=== PATIENT | male | born 1970 | race Caucasian/White ===

== ENCOUNTER 2020-03-20 14:36 | Emergency (ER) | payer SELFPAY ==
[2020-03-20 14:52] VITALS: BP 156/89; PULSE 82; RESP 15; TEMP 36.8; O2SAT 96
--- NOTE | 2020-03-20 16:09 | ED.GENADUL_ITS ---
Discharge Plan Disposition Patient Disposition: HOME Condition: Good Discharge Details Chief Complaint: Laceration Clinical Impression: Avulsion of soft tissue Primary Care Provider: Mikael Noel ED Provider: Dot Toure Home Meds and New Rx's Prescriptions: Continued ibuprofen 200 MG capsule 400 mg PO Q6H PRN Qty: 3 RF: 0 simvastatin 40 MG tablet 40 mg PO DAILY Qty: 1 RF: 0 Discharge Instructions Instructions: Laceration (ED), Skin Adhesive Care (ED) Additional Instructions: Keep wound clean, dry, covered. Tomorrow, you may wash with running water but please be gentle with the adhesive. Please try to keep the wound covered so that you do not pick at the adhesive. Please do not place any ointment over the adhesive as it may cause it to breakdown prematurely. You may use the splint provided to help protect the end of your finger and help with discomfort. Please monitor for signs of infection including redness, warmth, drainage, increased pain, fever/chills. If you develop these or other new/worsening symptoms please seek care urgently once again. Tetanus was updated today. You may use Tylenol and/or ibuprofen as needed for discomfort. Please follow-up with primary care next week for reevaluation. Referrals: Mikael Noel [Primary Care Provider] - Medical Decision Making Patient is a pleasant 49-year-old [id number] male presenting today with chief complaint of laceration to the left thumb. He reports a prior to arrival he was at work when he slipped with a utility knife slicing the radial side of his left thumb. Completely avulsed a piece of tissue including a section of the distal nail. Patient has a 1 cm x 8 mm avulsed area of tissue. Deep structures are intact. Patient does have active oozing from this area. Tetanus is not up- to-date. He denies other injury the time of the incident. Remaining exam of the thumb is unremarkable. He does have sensation is intact as well as capillary refill. Patient I discussed risks benefits as well as expected procedural steps of digital block followed by cleansing of the wound, further exploration and adhesive closure. He was understanding and wishes to proceed Please see procedure note. Patient tolerated this well. No foreign body or debris was noted. Will update patient's tetanus today. Plan to send home with a foam and metal splint that he can wear to help with discomfort is given strict return precautions. In particular, we discussed signs symptoms of infection. We did discuss wound care as well as adhesive care at length. All of his questions or concerns were addressed and he is in agreement this plan. He will f/u for wound evaluation with is PCP in one week. HPI General Mode of arrival: ambulatory . Date/Time Provider Initiated Documentation: 03/20/20 15:31 . Limitations to Documentation: no limitations . Information obtained by: patient and RN notes reviewed . History of Present Illness 49 year old M presents to the emergency department with the chief complaint of tissue avulsion left thumb, described as moderate, with intensity rated at 5. Quality is described as burning, and is localized to the left and upper extremity. Patient reports no radiation. Patient started experiencing this hour(s) (1) and it has been constant. No relieving factors improve symptom(s), Movement worsens symptoms . Patient notes no other symptoms.. Patient did receive the following treatments prior to arrival, none Related Data Home Medications Medication Instructions Recorded Confirmed ibuprofen 400 mg PO Q6H PRN #3 tab-cap 01/07/14 03/20/20 simvastatin 40 mg PO DAILY #1 tab-cap 01/07/14 03/20/20 Allergies Allergy/AdvReac Type Severity Reaction Status Date / Time No Known Allergies Allergy Unverified 01/07/14 10:48 General Stated Complaint: Laceration RANJIT: 4 Review of Systems Constitutional Constitutional: Reports as per HPI, Denies chills and Denies fever(s) Musculoskeletal Musculoskeletal: Reports as per HPI Integumentary/Breasts Skin/Breast: Reports as per HPI Neurologic Neurologic: Reports as per HPI, Denies sensory deficit and Denies paresthesias [facility] Social History Smoking/Tobacco Use Status: Current every day Alcohol Intake: current Alcohol Intake frequency: 3 or more drinks per day Alcohol type: beer Drug use: Never Do you feel safe at home: Yes Do you feel safe in your relationship?: Yes Exam Const General: cooperative, healthy appearing, comfortable, no acute distress and well developed Nutritional Appearance: average body habitus and well nourished Orientation: alert and awake Resp Effort & Inspection: normal respiratory effort, able to speak in complete sentences and no respiratory distress Cardio Rate: regular rate Rhythm: regular rhythm Skin Trauma: laceration (avulsion as drawn below, skin otherwise normal) Neuro General: patient alert and patient awake Cognition: normal cognition Speech: speech normal Gait: normal gait Sensory Exam: no sensory deficits noted Extrem Hand/finger images: 1. Area of avulsion along radial side left thumb. Digit otherwise normal. Good cap refill, sensation intact. Active bleeding noted. 1cm x 8mm area of avulsed tissue. No bone or deep structures visualized. No foreign body or debris. Full ROM. Psych Appearance: grossly normal and well kempt Mental Status: mental status grossly normal Speech and Movement: speech and movement normal Course Vital Signs Vital signs: Vital Signs Temperature 36.8 C 03/20/20 14:52 Pulse 82 03/20/20 14:52 Respiratory Rate 15 03/20/20 14:52 Blood Pressure 156/89 H 03/20/20 14:52 Pulse Oximetry 96 03/20/20 14:52 Temperature 36.8 C 03/20/20 14:52 Temperature Source Temporal Artery Scan 03/20/20 14:52 Pulse 82 03/20/20 14:52 Respiratory Rate 15 03/20/20 14:52 Respiratory Effort Non-Labored 03/20/20 14:54 Blood Pressure 156/89 H 03/20/20 14:52 Blood Pressure Position Supine 03/20/20 14:52 Pulse Oximetry 96 03/20/20 14:52 Oxygen Delivery Method Room Air 03/20/20 14:52 Oxygen Flow Rate 0 03/20/20 14:52 Pain Level 7 03/20/20 15:01 Procedures Laceration Laceration 1: Site: hand Side (If applicable): left Size (cm): 1 Description: other (Avulsed 1 cm x 8 mm oval area radial side left thumb) Depth: simple, single layer Local Anesthetic: Lidocaine 1% Amount of anesthesia used (mL): 5 (Digital block) Pre-repair: wound explored (Tourniquet used), irrigated extensively and deep structures intact Skin layer closed with: other (Adhesive)
== END 2020-03-20 16:30 | disposition home or self-care (01) ==
PROVIDERS: Emergency Provider Physician Assistant; PCP Family Medicine
DX: S61.112A Laceration without foreign body of left thumb with damage to nail, initial encounter (principal); W26.8XXA Contact with other sharp object(s), not elsewhere classified, initial encounter; Y99.0 Civilian activity done for income or pay
CPT/HCPCS: 12001

== ENCOUNTER 2020-10-19 18:12 | Outpatient (REF) | payer MEDICAID, SELFPAY ==
[2020-10-19 15:56] LABS: HCT 41.5 % (40.0-50.0); MCH 31.3 pg (27.0-33.0); MCHC 33.7 % (32.0-36.0); MCV 92.8 fL (80-95); MPV 11.9 fL (8.0-11.0); Platelet Count 177 10^3/uL (130-400); RBC 4.47 10^6/uL (4.36-5.78); RDW 12.6 % (11.8-14.1); RDW-SD 43.5 fL; WBC 8.09 10^3/uL (4.4-10.8)
[2020-10-19 16:10] LABS: ALT 39 U/L (16-63); AST 27 U/L (15-37); Alkaline Phosphatase 89 U/L (46-116); Anion Gap 9.2 mmol/L (3-11); BUN 13 mg/dL (7-18); Bilirubin, Total 0.3 mg/dL (0.2-1.0); CO2 25.8 mmol/L (21.0-32.0); CREATININE 0.98 mg/dL (0.70-1.30); Calcium 8.9 mg/dL (8.5-10.1); Calculated LDL 151 mg/dL (<100); Chloride 104 mmol/L (98-107); Cholesterol 238 mg/dL (<200); Glucose 108 mg/dL (74-106); HDL Cholesterol 41 mg/dL (40-60); Potassium 4.3 mmol/L (3.5-5.1); Sodium 139 mmol/L (136-145); Total Protein 7.1 g/dL (6.4-8.2); Triglyceride 233 mg/dL (<150)
[2020-10-19 16:34] LABS: Hemoglobin A1C 5.5 % (<5.7)
== END 2020-10-19 18:32 ==
LOC: NCHCN 18:12
PROVIDERS: PCP Family Medicine; Visit Provider Family Medicine
DX: R73.03 Prediabetes (principal); E78.5 Hyperlipidemia, unspecified; F10.10 Alcohol abuse, uncomplicated
CPT/HCPCS: 80053; 80061; 85027; 83036

== ENCOUNTER 2021-04-30 12:15 | Emergency (ER) | payer MEDICAID, SELFPAY ==
[2021-04-30 12:18] VITALS: BP 145/74; PULSE 67; RESP 17; TEMP 36.9; O2SAT 99
--- NOTE | 2021-04-30 12:22 | ED.GENADUL_ITS ---
Discharge Plan Disposition Patient Disposition: HOME Condition: Stable Discharge Details Clinical Impression: MCL sprain of right knee, Effusion of knee joint right Primary Care Provider: Mikael Noel ED Provider: Kandice Flowers Home Meds and New Rx's Prescriptions: No Action ibuprofen 200 MG capsule 400 mg PO Q6H PRN Qty: 3 RF: 0 simvastatin 40 MG tablet 40 mg PO DAILY Qty: 1 RF: 0 Discharge Instructions Instructions: Knee Sprain (ED) Additional Instructions: Wear brace as needed for comfort. Weightbearing as tolerated. Rest, ice, compression, elevation. It may still take a few weeks for it to start feeling better depending on the severity of the sprain. If it does not feel better in 3 weeks please call Orthopedics. Stand Alone Forms: Work Release Referrals: Francis Naqvi MD [ [facility]] - 2 weeks Mikael Noel [Primary Care Provider] - Discharge Data Discharge Date/Time-TO BE ENTERED AT DEPARTURE: 04/30/21 13:59 Medical Decision Making 50-year-old male presents to the ER right medial knee pain status post a twisting type injury x3 weeks ago. Patient reports that he has had continued pain and achiness worse at night, with weightbearing, and with walking up and down stairs. Associated with swelling. He did not initially fall to the ground. He denies previous surgeries to the knee. He has a past medical history of high cholesterol. He has been using a Coppertone [id number]-[id number] type compression bandage little to no relief. x-ray right knee ordered. I do suspect sprain. Possible MCL involvement. Patient was given a hinged knee brace prior to discharge, did not require any medications while here. Discussed follow-up with orthopedics and placed on the orthopedic clinic follow-up list, verbalized understanding. Encouraged rest ice compression elevation alternating ibuprofen and Tylenol. Patient discharged in hemodynamically stable condition. This text was generated using Tuteeation system, please disregard any oddities of phrase or misspellings. Imaging Data Radiologic Study: Imaging: X-Ray Radiologist's impression: Three-view x-ray right knee FINDINGS: There is no evidence of fracture but there is swelling anterior to the patella and there is also a joint effusion evident. Tibial plateau appears unremarkable. No joint space narrowing. No osseous lesions. IMPRESSION: No fractures evident although there does appear to be a joint effusion which probably signifies internal derangement. There is also prepatellar swelling evident. No patellar fracture evident. HPI General Mode of arrival: ambulatory . Date/Time Provider Initiated Documentation: 04/30/21 12:16 . Limitations to Documentation: no limitations . Information obtained by: patient . HPI Narrative: 50-year-old male presents to the ER right medial knee pain status post a twisting type injury x3 weeks ago. Patient reports that he has had continued pain and achiness worse at night, with weightbearing, and with walking up and down stairs. Associated with swelling. He did not initially fall to the ground. He denies previous surgeries to the knee. He has a past medical history of high cholesterol. He has been using a Coppertone pdzr-[id number]-[id number] type compression bandage little to no relief. Related Data Home Medications Medication Instructions Recorded Confirmed ibuprofen 400 mg PO Q6H PRN #3 tab-cap 01/07/14 04/30/21 simvastatin 40 mg PO DAILY #1 tab-cap 01/07/14 04/30/21 Allergies Allergy/AdvReac Type Severity Reaction Status Date / Time No Known Allergies Allergy Unverified 01/07/14 10:48 General Stated Complaint: Orthopedic RANJIT: 4 Review of Systems All systems reviewed & are unremarkable except as noted in HPI and below ENT Ears, Nose, Mouth, and Throat: Denies neck pain Musculoskeletal Musculoskeletal: Reports as per HPI, Reports abnormal gait (Limping), Denies back pain, Denies deformity, Reports arthralgias, Reports joint swelling (Mild), Denies limited range of motion, Denies loss of height, Denies neck pain and Denies numbness Neurologic Neurologic: Reports abnormal gait (Limping) and Denies numbness [facility] Social History Smoking/Tobacco Use Status: Current every day Smoking risk assessment performed?: Yes Alcohol Intake: current Alcohol Intake frequency: 3 or more drinks per day Alcohol type: beer Drug use: Never Do you feel safe at home: Yes Do you feel safe in your relationship?: Yes Exam Narrative Exam Narrative: Constitutional: Alert and oriented x3. Appears stated age. Normal body habitus. Head: Normocephalic, no trauma. Eyes: Pupils PERRLA, Red reflex noted, EOM's intact. Eyelids symmetrical without lesions, discharge, or swelling. Chest: RRR, Normal S1, S2, distal pulses intact. Resp: Lungs clear to auscultation bilaterally, no wheezes, rales, or rhonchi. Musculoskeletal: Walks with a limp, negative anterior posterior drawer test, does have some medial joint tenderness with palpation, no obvious deformity mild swelling generalized noted. Negative Lawrence's test, 5/5 strength to all four extremities. Skin: No suspicious rashes or lesions. Capillary refill less than 2 sec. Neurologic: Cranial nerves II-XII intact. Alert and oriented x 3. DTR's intact. Hematologic/Lymphatic: No ecchymosis, no lymphadenopathy. Course Vital Signs Vital signs: Vital Signs Temperature 36.9 C 04/30/21 12:18 Pulse 67 04/30/21 12:18 Respiratory Rate 17 04/30/21 12:18 Blood Pressure 145/74 H 04/30/21 12:18 Pulse Oximetry 99 04/30/21 12:18 Temperature 36.9 C 04/30/21 12:18 Temperature Source Temporal Artery Scan 04/30/21 12:18 Pulse 67 04/30/21 12:18 Respiratory Rate 17 04/30/21 12:18 Blood Pressure 145/74 H 04/30/21 12:18 Blood Pressure Position Sitting 04/30/21 12:18 Pulse Oximetry 99 04/30/21 12:18 Oxygen Delivery Method Room Air 04/30/21 12:18 Oxygen Flow Rate 0 04/30/21 12:18 Pain Level 3 04/30/21 12:18
--- NOTE | 2021-04-30 13:16 | DI.RAD_ITS ---
Exam(s) XR KNEE RT 3V AP,LAT,DAYLIN EXAM: XR KNEE RT 3V AP,LAT,DAYLIN CLINICAL HISTORY: Right knee pain/swelling x 3 weeks. TECHNIQUE: 2D digital imaging was performed. COMPARISON: No exams were available for comparison FINDINGS: There is no evidence of fracture but there is swelling anterior to the patella and there is also a shayy int effusion evident. Tibial plateau appears unremarkable. No joint space narrowing. No osseous lesions. IMPRESSION: No fractures evident although there does appear to be a joint effusion which probably signifies inter nal derangement. There is also prepatellar swelling evident. No patellar fracture evident. DATA REPOSITORY: RADIATION DOSE DELIVERED:
[2021-04-30 13:59] VITALS: BP 145/74; PULSE 67; RESP 17; TEMP 36.9; O2SAT 99
== END 2021-04-30 13:59 | disposition home or self-care (01) ==
PROVIDERS: Emergency Provider Registered Nurse Emergency; PCP Family Medicine
DX: S83.411A Sprain of medial collateral ligament of right knee, initial encounter (principal); M25.461 Effusion, right knee; X50.1XXA Overexertion from prolonged static or awkward postures, initial encounter
CPT/HCPCS: 29505; 73562; 99283

== ENCOUNTER 2021-06-08 04:00 | Outpatient (CLI) | payer MEDICAID, SELFPAY ==
--- NOTE | 2021-06-08 08:45 | DI.MRI_ITS ---
Exam(s) MR LOWER JOINT RT WO EXAM: MR LOWER JOINT RT WO CLINICAL HISTORY: PAIN, INTERNAL DERANGEMENT RT KNEE, MCL SPRAIN, M23.91, S83.411A. TECHNIQUE: Multiplanar multisequence MRI was performed. COMPARISON: CR XR KNEE RT 3V AP,LAT,DAYLIN from 04/30/2021 FINDINGS: BONES: There is no fracture or contusion pattern. JOINTS: Small defect apex patellar cartilage. A moderate-sized joint effusion is present. TENDONS: Extensor mechanism: Unremarkable. Medial retinaculum: Unremarkable. Lateral retinaculum: Unremarkable. Popliteus: Unremarkable. MUSCLES: Unremarkable. MENISCI: The medial meniscus shows abnormal amorphous increased signal in the periphery of the body. There is a horizontally oriented tear in the posterior horn as well as a radially oriented tear in th e posterior horn. Anterior horn is unremarkable.. The lateral meniscus is unremarkable. SOFT TISSUES: Anterior edema. LIGAMENTS: Anterior Cruciate: Mild amount of fluid within 8 ACL fibers but no focal tear. Posterior Cruciate: Unremarkable. Medial Collateral:Edema around the medial collateral ligament with thickening at the femoral attachme nt, consistent with a sprain. No focal visible tear. Lateral Collateral ligament complex: Unremarkable. OTHER: IMPRESSION: Anterior cruciate ligament and medial collateral ligament sprains. Complex tear of the posterior horn and body of the medial meniscus with radial and horizontally orien bony components. Joint effusion. DATA REPOSITORY:
== END 2021-06-08 04:20 ==
PROVIDERS: PCP Family Medicine; Visit Provider Student in an Organized Health Care Education/Training Program
DX: M23.91 Unspecified internal derangement of right knee (principal); S83.411A Sprain of medial collateral ligament of right knee, initial encounter; S83.511A Sprain of anterior cruciate ligament of right knee, initial encounter; S83.231A Complex tear of medial meniscus, current injury, right knee, initial encounter; M25.461 Effusion, right knee; X58.XXXA Exposure to other specified factors, initial encounter
CPT/HCPCS: 73721

== ENCOUNTER 2021-08-06 03:19 | Outpatient (CLI) | payer MEDICAID, SELFPAY ==
[2021-08-06 10:29] LABS: Source Nasal/Nares
[2021-08-06 13:39] LABS: COVID-19 PCR Negative (Negative)
== END 2021-08-06 03:20 | disposition home or self-care (01) ==
LOC: LBO 03:19
PROVIDERS: PCP Family Medicine; Visit Provider Student in an Organized Health Care Education/Training Program
DX: Z20.822 Contact with and (suspected) exposure to COVID-19 (principal); Z01.818 Encounter for other preprocedural examination
CPT/HCPCS: 87635

== ENCOUNTER 2021-08-07 07:23 | Day surgery (SDC) | payer MEDICAID, SELFPAY ==
--- NOTE | 2021-08-07 06:46 | W.PM.DSUDISC ---
Discharge Plan Disposition Patient Disposition: HOME Condition: Stable Discharge Details Reason For Visit: right knee arthroscopy Attending Provider: Francis Naqvi Primary Care Provider: Mikael Noel Home Meds and New Rx's Prescriptions: New oxycodone 5 mg tablet 5 mg PO Q4H PRNQty: 8 RF: 0 Continued ibuprofen 200 MG capsule 400 mg PO Q6H PRN Qty: 3 RF: 0 simvastatin 40 MG tablet 40 mg PO DAILY Qty: 1 RF: 0 Discharge Instructions Stand Alone Forms: Driss Knee Arthroscopy Referrals: Francis Naqvi MD [ [facility] STAFF PHYSICIAN] - Equipment/Supplies: Partial Weight Bearing Crutches Activity:: Activity as Tolerated Remove Dressings/Wound Care:: 72 hours Shower/Bathe:: 72 hours Diet:: As Tolerated Discharge Orders Discharge Orders: Discharge Order (Routine); Ordered 08/07/21 Ordered By: Nasreen Flores DS: Diagnosis Discharge Diagnosis (1) Complex tear of medial meniscus of right knee: Status: Acute (2) Internal derangement of right knee: Status: Acute
[2021-08-07 07:35] VITALS: BP 159/85; PULSE 91; RESP 18; TEMP 36.9; O2SAT 99
[2021-08-07] MEDS: Lactated Ringers 1,000 ML 80 ML IV (07:54)
[2021-08-07] MEDS: Acetaminophen 325 MG TAB 650 MG PO (07:57)
[2021-08-07 08:22] VITALS: BMI 31.3
--- NOTE | 2021-08-07 08:22 | W.ANESPRE ---
General Info Date of Service Date Performed: 08/07/21 Height: 5 ft 10 in Weight: 99.1 kg Body Mass Index (BMI): 31.3 Surgical Procedure: Operation Date: 08/07/21 09:40 Proposed Procedures Side Surgeon p KNEE ARTHROSCOPY WITH PARTIAL MEDIAL MENISECTOMY Francis Naqvi MD Meds Allergies and Home Medications Allergies Allergy/AdvReac Type Severity Reaction Status Date / Time No Known Allergies Allergy Unverified 08/07/21 07:43 Home Medication Medication Instructions Recorded ibuprofen 400 mg PO Q6H PRN #3 tab-cap 01/07/14 simvastatin 40 mg PO DAILY #1 tab-cap 01/07/14 Current Visit Medications: Current Medications Generic Name Dose Route Start Last Admin Trade Name Freq PRN Reason Stop Dose Admin Acetaminophen 650 mg 08/07/21 06:44 08/07/21 07:57 Acetaminophen 325 Mg Tab PO 650 mg Q4H PRN PRN Administration Ringer's Solution 1,000 mls @ 80 mls/hr 08/07/21 06:00 08/07/21 07:54 IV 09/05/21 23:59 80 mls/hr INFUSION GABE Administration Cefazolin Sodium 2,000 mg/ 100 mls @ 200 mls/hr 08/07/21 06:00 Sodium Chloride IVPB 08/07/21 16:00 PREOP GABE Ondansetron HCl 4 mg/ Sodium 52 mls @ 200 mls/hr 08/07/21 06:44 Chloride IVPB Q6H PRN PRN IV Miscellaneous Supplies 1 each 08/07/21 06:00 Iv Access IV 09/05/21 23:59 DIRECTED GABE Oxycodone HCl 5 mg 08/07/21 06:44 Oxycodone 5 Mg Tab PO Q3H PRN PRN Pain Sodium Chloride 0 ml 08/07/21 06:00 Normal Saline Flush 10 Ml Syr IV 09/05/21 23:59 PRN PRN Sodium Chloride 0 ml 08/07/21 06:00 Normal Saline 10 Ml Vial IJ 09/05/21 23:59 DIRECTED PRN Sterile Water 0 ml 08/07/21 06:00 Water,Injection,Sterile 10 Ml Vial IJ 09/05/21 23:59 DIRECTED PRN PFSH Active Problems Active Problems: Problem Status Onset Code MCL sprain of right knee S83.411A Effusion of knee joint right M25.461 Internal derangement of right knee M23.91 Complex tear of medial meniscus of right knee S83.231A Medical History Medical History HLD (hyperlipidemia) Tobacco Smoking/Tobacco Use Status: Current every day Tobacco Type: cigarettes Smoking cigarettes per day: 30 Alcohol Alcohol Intake: current Alcohol intake frequency: 3 or more drinks per day Alcohol type: beer Substance Use Substance use: Never Substance use type: does not use Vital Signs and Lab Results Vital Signs Most Recent Vital Signs in EMR: Most Recent Vital Signs Temp Pulse Resp BP Pulse Ox 36.9 C 91 H 18 159/85 H 99 08/07/21 07:35 08/07/21 07:35 08/07/21 07:35 08/07/21 07:35 08/07/21 07:35 Lab Results Blood Type / Crossmatch: No Data to Display Complete Blood Count: No Data to Display Complete Metabolic Panel: No Data to Display Liver Function Panel: No Data to Display Coagulation Panel: No Data to Display Cardiac Panel: No Data to Display Arterial Blood Gas: No Data to Display Venous Blood Gas: No Data to Display Pancreas Panel: No Data to Display Thyroid Panel: No Data to Display Infectious Disease: Coronavirus (COVID-19)(PCR) Negative (Negative) 08/06/21 09:15 08/06/21 Coronavirus 2019 Source Nasal/Nares 08/06/21 09:15 08/06/21 Blood Cultures: No Data to Display Toxicology Panel: No Data to Display Anesthesia Assessment and Plan Anesthesia History Personal History: No History of General Anesthesia Family History: No Family History of Anesthesia Complications Exercise Tolerance Exercise Tolerance: Metabolic Equivalents>4 Pertinent Negatives Pertinent Negatives: No Symptoms of GERD, No Major Cardiovascular Symptoms or Complaints and No Major Pulmonary Symptoms or Complaints Cardiac & Pulmonary Exam Cardiac Exam: Normal S1/S2 Heart Sounds Pulmonary Exam: Clear Bilateral Breath Sounds Implantable Cardiac Device Does patient have a Pacemaker or an ICD?: No Airway Exam Known Difficult Airway: No Mallampati Class: 2 Mouth Opening: Normal (> 3cm) Thyromental Distance: Greater than 3 cm Neck Range of Motion: Full ROM Neck Circumference: Normal Teeth Condition: Edentulous ASA Classification ASA Score: ASA 2 Emergency Case?: No NPO Status NPO Status: NPO Clears >2 hours, Solids >8 hours Anesthesia Plan Resuscitation Status: Full Code Anesthesia Technique: General Anesthesia Airway Planned: LMA Monitors Used: Standard Monitors
--- NOTE | 2021-08-07 09:55 | HPE_ITS ---
Date of service: 08/07/21 Time of Service: 09:55 Assessment and Plan Assessment and plan (1) Complex tear of medial meniscus of right knee: Status: Acute Assessment and plan: Farhad is a51yo male with a right medial meniscus tear. He has failed nonoperative treatments and desires to proceed with a right knee arthrotscopic partial medial menisectomy. I discussed the surgery with him in detail. I reviewed the risks of the procedure to include bleeding, infection, pain, stiffness, recurrence/retear, worsening arthritis, blood clot. Despite these risks, he agrees to proceed. Qualifiers: Tear current or old: current Encounter type: subsequent encounter Qual ified Code(s): S83.231D - Complex tear of medial meniscus, current injury, right knee, subsequent encounter History of Present Illness History of Present Illness Chief Complaint: Right Knee Medial Meniscus Tear Narrative: Farhad is a 51yo who has been ahving continued pain about his right knee. He has mechanical symptoms and an MRI with a medial meniscus tear. He is here to proceed with knee arthroscopy and partial medial menisecotmy. No new trauma. Pain is medial. Pain is worsened with twisting and bending, especially stepping down. Review of Systems All systems reviewed & are unremarkable except as noted in HPI and below PFSH Medical History HLD (hyperlipidemia) Social History Smoking/Tobacco Use Status: Current every day Tobacco Type: cigarettes Smoking risk assessment performed?: Yes Alcohol Intake: current Alcohol Intake frequency: 3 or more drinks per day Alcohol type: beer Drug use: Never Substance use type: does not use Do you feel safe at home: Yes Do you feel safe in your relationship?: Yes Meds Allergies and Home Medications Allergies Allergy/AdvReac Type Severity Reaction Status Date / Time No Known Allergies Allergy Unverified 08/07/21 07:43 Home Medications Medication Instructions Recorded Confirmed Type ibuprofen 400 mg PO Q6H PRN #3 tab-cap 01/07/14 08/06/21 History simvastatin 40 mg PO DAILY #1 tab-cap 01/07/14 08/07/21 History Exam Resp Auscultation: clear to auscultation bilaterally Cardio Rate: regular rate Rhythm: regular rhythm Results Last Vital Signs Temp 36.9 C 08/07/21 07:35 Pulse 91 H 08/07/21 07:35 Resp 18 08/07/21 07:35 BP 159/85 H 08/07/21 07:35 Pulse Ox 99 08/07/21 07:35
[2021-08-07] MEDS: ceFAZolin 2,000 MG in Normal Saline 100 ML 200 MG IVPB (10:03)
[2021-08-07] MEDS: Bupivacaine 0.5% Pres-Free 30 ML VIAL (10:47)
[2021-08-07 11:06] VITALS: BP 100/58; PULSE 72; RESP 28; TEMP 36.3; O2SAT 100
[2021-08-07 11:10] VITALS: BP 108/47; PULSE 73; RESP 33; TEMP 36.3; O2SAT 100
[2021-08-07 11:15] VITALS: BP 108/48; PULSE 79; RESP 27; TEMP 36.3; O2SAT 97
[2021-08-07 11:30] VITALS: BP 116/56; PULSE 73; RESP 19; TEMP 36.4; O2SAT 95
--- NOTE | 2021-08-07 12:05 | W.ANESPOSTOP ---
Postoperative Evaluation Date, Time and Location Date Performed: 08/07/21 Time Performed: 12:05 Patient Location: Day Surgery Unit Vital Signs Most Recent Imported Vital Signs: Most Recent Vital Signs Temp Pulse Resp BP Pulse Ox 36.4 C L 73 19 116/56 L 95 08/07/21 11:30 08/07/21 11:30 08/07/21 11:30 08/07/21 11:30 08/07/21 11:30 Pain Score Most Recent Pain Score: Most Recent Pain Score Pain Level 0 08/07/21 11:30 Assessment Mental Status: Awake (Alert & Oriented to Patient Baseline) Airway and Respiratory Function: Patent airway with normal (patient baseline) respiratory exam Cardiovascular Function: Hemodynamically Stable Hydration Status: Adequately Hydrated Nausea & Vomiting: No Nausea or Vomiting Pain: Pt. Denies Any Pain Peripheral Nerve Block: Patient did not receive a nerve block
[2021-08-07 12:12] VITALS: BP 120/67; PULSE 72; RESP 16; TEMP 36.5; O2SAT 99
--- NOTE | 2021-08-07 21:53 | ROE_ITS ---
Date of service: 08/07/21 Time of Service: 10:59 Operative Note Operative Note DATE OF PROCEDURE: 08/07/21 PRE-OP DIAGNOSIS: Right Knee Medial Meniscus Tear POST-OP DIAGNOSIS: same PROCEDURE: Right Knee Arthroscopic Partial Medial Menisectomy SURGEON: Francis Naqvi ANESTHESIA TYPE: General LMA/ETT Refer to Anesthesia Record ESTIMATED BLOOD LOSS: 0 PATHOLOGY: none sent COMPLICATIONS: None Patient was transported to: PACU Patient's condition: stable Indications: I have seen Farhad in clinic for symptoms of a meniscus tear. This was confirmed based on MRI and exam findings. Nonoperative measures were exhausted but disability and pain persisted. I discussed knee arthroscopy with meniscal intervention with the patient. I reviewed the risks of the procedure to include, but not limited to, bleeding, infection, pain, stiffness, damage to nerves or vessels, recurrence, blood clot. Despite these risks, the patient elected to proceed. Findings: A diagnostic arthroscopy was performed with the following findings: Suprapatellar Pouch: No significant inflammation, no loose bodies Medial Compartment: Complex medial meniscal tear with displaced fragments, intact meniscal root, mild chondromalacia, grade 1, over the femur, no loose bodies Notch: ACL and PCL were intact Lateral Compartment: No meniscal tear, intact meniscal root, no significant chondromalacia or signs of arthritis, no loose bodies Patellofemoral Compartment: No significant chondromalacia, no apparent patellar maltracking Procedure Description: Farhad was greeted in the preoperative holding area where the correct side was identified and marked. The consent was reviewed with the patient and signed. The history and physical was updated. All questions were answered. He was taken back to the operating room. The patient was placed into the supine position on the operating room table. All bony prominences were well padded. Prophylactic antibiotics in the form of cefazolin were administered. The right leg was then prepped with Chloraprep and draped in a standard fashion with stockinette and extremity drape. A timeout to confirm correct identity, side and site, procedure, allergies, anesthesia, and medical concerns was performed. The leg was placed into a pneumatic leg rees, [id number]. A standard lateral portal was made at the lateral border of the patella tendon in line with the inferior pole of the patella, soft spot. The skin and deep tissue was incised sharply and the blunt trochar was inserted atraumatically. A diagnostic arthroscopy was performed and the findings are listed above. The suprapatellar pouch had no significant inflammatory change. The patellofemoral articulation showed minimal chondromalacia as well as good tracking. The lateral gutter had no loose bodies and the medial gutter had no loose bodies but a large piece of the medial meniscus was seen within the medial gutter displaced from the posterior horn and body. The knee was brought into some valgus stress in extension to open the medial compartment. A medial portal was made, localized by a spinal needle. The portal was created with an #11 blade through skin and capsule under direct visualization avoiding any meniscal injury. A probe was then inserted into the medial compartment. The medial compartment was fully inspected. The chondral surface of the tibia showed no significant chondromalacia and the surface of the femur showed primarily grade I ch ondromalacia. The medial meniscus had a complex tear with a large displaced fragment into the medial gutter. The displaced fragment was brought back into the medial compartment. It originated mostly body of the medial meniscus. Using arthroscopic biters I remove this loose fragment and debrided down the excess with michael. At this point I was able to further investigate the meniscus which showed a complex tear extending from this region all the way towards the root. There is a large horizontal component to this creating 2 flaps. The most superior flap was the more stable of the 2 and in general the tissue quality look to be somewhat poor from chronicity and thus not amenable to repair. After evaluation, the meniscus was debrided down to a stable base using a series of biters and arthroscopic michael. It was probed afterwards to confirm that the tear had been removed and the meniscus was stable. The notch was then inspected which showed an intact ACL and an intact PCL. The leg was then brought into a figure of 4 position. The lateral compartment was fully inspected with the arthroscope and a probe. The chondral surface of the lateral femur showed no significant chondromalacia. The chondral surface of the lateral tibia showed no significant chondromalacia. The lateral meniscus had no meniscal tear. After evaluation, the meniscus was debrided down to a stable base using a series of biters and arthroscopic michael. It was probed afterwards to confirm that the tear had been removed and the meniscus was stable. Cartilage surfaces were debrided of any flaps, leaving any intact fibers. The arthroscope was brought back into the suprapatellar pouch and the leg was in full extension. The knee was thoroughly irrigated with the arthroscopic fluid on high flow and pressure. Inflow was stopped and excess fluid was removed. The wounds were closed with 4-0 Nylon. They were dressed with Xeroform, 4x4 gauze, ABD pad, Kerlix and an DAYRON wrap. A cryo-cuff was applied. The patient tolerated the procedure well and was returned to the Same Day Surgery area in a stable condition suffering no known complication.
== END 2021-08-07 13:00 | disposition home or self-care (01) ==
LOC: SUR 07:23
PROVIDERS: PCP Family Medicine; Visit Provider Student in an Organized Health Care Education/Training Program
PROC: (CPT 29870; principal; 2021-08-07 09:30)
DX: M23.232 Derangement of other medial meniscus due to old tear or injury, left knee (principal); M94.261 Chondromalacia, right knee; F17.210 Nicotine dependence, cigarettes, uncomplicated
CPT/HCPCS: 29881; J0690; J1100; J1885; J2250; J2405; J2704

== ENCOUNTER → 2022-02-18 14:45 | Outpatient (CLI) | payer MEDICAID, SELFPAY ==
--- NOTE | 2022-02-18 14:51 | DI.RAD_ITS ---
Exam(s) XR KNEE LT 3V AP,LAT,DAYLIN EXAM: XR KNEE LT 3V AP,LAT,DAYLIN CLINICAL HISTORY: LEFT KNEE JOINT PAIN -- M25.562. TECHNIQUE: 2D digital imaging was performed. Three views. COMPARISON: MR MR LOWER JOINT RT WO from 06/08/2021 FINDINGS: BONES: No acute fracture is present. No bony destructive lesion is seen. JOINTS: Joint spaces are well maintained. The knee is normally aligned. A moderate-sized joint effus ion is seen. SOFT TISSUE: Anterior soft tissue swelling. IMPRESSION: Joint effusion. DATA REPOSITORY: RADIATION DOSE DELIVERED:
== END ==
PROVIDERS: PCP Family Medicine; Visit Provider Family Medicine
DX: M25.562 Pain in left knee (principal); M25.462 Effusion, left knee
CPT/HCPCS: 73562

== ENCOUNTER 2022-02-18 14:49 | Outpatient (REF) | payer MEDICAID, SELFPAY | END 2022-02-18 14:50 | disposition home or self-care (01) | LOC: LBN 14:49 | PROVIDERS: PCP Family Medicine; Visit Provider Family Medicine ==

== ENCOUNTER → 2022-04-03 01:36 | Outpatient (CLI) | payer MEDICAID, SELFPAY ==
--- NOTE | 2022-04-03 | DI.CTLCSR_ITS ---
Exam(s) CT CHEST LUNG CANCER SCREEN EXAM: CT CHEST LUNG CANCER SCREEN CLINICAL HISTORY: SCREENING FOR LUNG CA,CURRENT SMOKER, ADULT PREVENTATIVE CARE,Z00.00 TECHNIQUE: Imaging Protocol: Axial computed tomography images with coronal and sagittal reformatted images were created and reviewed. Low dose screening protocol. COMPARISON: CR CHEST 2 VIEWS PA,LAT from 10/20/2013 FINDINGS: Tracheobronchial tree: No bronchiectasis or mucus plugging.. Mediastinum and Dai: No dominant adenopathy or fluid collection. Pulmonary parenchyma: No consolidation or dominant measurable mass. No visible emphysematous changes. Lung Nodules: None. Pleura: No effusion. No pneumothorax. Heart: The heart is not dilated. Mild coronary artery calcifications are seen. Aorta: Thoracic aorta non-dilated. Upper abdomen: Unremarkable. Bones: Unremarkable for age. Soft Tissues: Unremarkable . IMPRESSION: No suspicious pulmonary nodules. Lung RADS Cat 1 - Negative: No nodules and definitely benign nodules Lung-RADS 1.0 CATEGORIES: Category 0 - Prior chest CT exam(s) being located for comparison. Category 1 - Annual screening in 12 months. No nodules or definitely benign nodules. Category 2 - Annual screening in 12 months. Benign appearance. Nodules with low likelihood of becomin g active cancer. Category 3 - 6-month follow-up. Probably benign. Short-term follow-up suggested. Nodules with low lik elihood of becoming active cancer. Category 4A - 3-month follow-up and CT/PET if >8 mm in size. Suspicious finding. Findings which requi re additional testing. Category 4B - Findings which require additional testing and tissue sampling. Category 4X - Category 3 or 4 nodules with additional features or imaging findings that increases the suspicion of malignancy. Modifier S- Potentially clinically significant findings (non lung cancer) RADIATION DOSE DELIVERED: 93.94mGy.cm Total DLP 2.21mGy CTDIvol DATA REPOSITORY: All CT scans at this facility are submitted to the National Radiology Data Registry (NRDR) Dose Index Registry (DIR) with the [employer] ([employer]). RADIATION OPTIMIZATION: All CT scans at this facility use at least one of these dose optimization te chniques: automated exposure control; mA and/or kV adjustment per patient size (includes targeted exa ms where dose is matched to clinical indication); or iterative reconstruction.
--- NOTE | 2022-04-03 | DI.MRI_ITS ---
Exam(s) MR LOWER JOINT LT WO EXAM: MR LOWER JOINT LT WO CLINICAL HISTORY: LT KNEE PAIN, M25.562, EFFUSION, GIVING OUT,? MENISCAL TEAR. TECHNIQUE: Multiplanar multisequence MRI was performed. COMPARISON: MR MR LOWER JOINT RT WO from 06/08/2021 CR XR KNEE LT 3V AP,LAT,DAYLIN from 02/18/2022 FINDINGS: BONES: There is no fracture. There is edema in the medial aspect of the medial femoral condyle and m edial tibial plateau. Findings could be posttraumatic.. JOINTS: Articular cartilage is unremarkable. A moderate size joint effusion is present. Tendons: Extensor mechanism: Unremarkable. Medial retinaculum: Unremarkable. Lateral retinaculum: Unremarkable. Popliteus: Unremarkable. MUSCLES: Unremarkable. MENISCI: The medial meniscus shows horizontally oriented linear tear extending to superior articular surface involving the posterior horn.. The lateral meniscus is unremarkable. SOFT TISSUES: Anterior subcutaneous edema. LIGAMENTS: Anterior Cruciate: Unremarkable. Posterior Cruciate: Unremarkable. Medial Collateral:There is fluid surrounding the medial collateral ligament but no visible focal tear . Lateral Collateral: Unremarkable. IMPRESSION: Horizontal tear of the posterior horn of the medial meniscus. DATA REPOSITORY:
== END ==
PROVIDERS: PCP Family Medicine; Visit Provider Family Medicine
DX: Z00.00 Encounter for general adult medical examination without abnormal findings (principal); Z12.2 Encounter for screening for malignant neoplasm of respiratory organs; F17.200 Nicotine dependence, unspecified, uncomplicated; S83.242A Other tear of medial meniscus, current injury, left knee, initial encounter; X58.XXXA Exposure to other specified factors, initial encounter; Y99.8 Other external cause status
CPT/HCPCS: 71271; 73721

== ENCOUNTER 2022-04-08 14:32 | Outpatient (CLI) | payer MEDICAID, SELFPAY ==
[2022-04-08 15:14] LABS: Source Nasal/Nares
[2022-04-08 17:24] LABS: COVID-19 PCR Negative (Negative)
== END 2022-04-08 14:33 | disposition home or self-care (01) ==
LOC: LBO 14:33
PROVIDERS: PCP Family Medicine; Referring Provider Family Medicine; Visit Provider Student in an Organized Health Care Education/Training Program
DX: Z20.822 Contact with and (suspected) exposure to COVID-19 (principal); Z01.818 Encounter for other preprocedural examination
CPT/HCPCS: 87635

== ENCOUNTER 2022-04-10 10:53 | Day surgery (SDC) | payer MEDICAID, SELFPAY ==
[2022-04-10] VITALS (8 sets, daily range): BP systolic 93–148; BP diastolic 37–98; PULSE 57–75; RESP 16–37; TEMP 36.2–37.1; O2SAT 92–100; BMI 30.8
--- NOTE | 2022-04-10 09:54 | W.ANESPRE ---
General Info Date of Service Date Performed: 04/10/22 Height: 5 ft 10 in Weight: 97.522 kg Body Mass Index (BMI): 30.8 Surgical Procedure: Operation Date: 04/10/22 13:25 Proposed Procedure Side Surgeon p Knee Arthroscopy w/ Partial Medial Menisectomy Left Francis Naqvi MD Meds Allergies and Home Medications Allergies Allergy/AdvReac Type Severity Reaction Status Date / Time No Known Allergies Allergy Unverified 04/10/22 11:21 Home Medication Medication Instructions Recorded ibuprofen 200 mg capsule 400 mg PO Q6H PRN #3 tab-caps 01/07/14 simvastatin 40 mg tablet 40 mg PO DAILY #1 tab-cap 01/07/14 Current Visit Medications: Current Medications Generic Name Dose Route Start Last Admin Trade Name Freq PRN Reason Stop Dose Admin Ringer's Solution 1,000 mls @ 80 mls/hr 04/10/22 06:00 IV 05/09/22 23:59 INFUSION GABE Cefazolin Sodium/Dextrose 2 gm in 50 mls @ 100 mls/hr 04/10/22 06:00 Ancef Duplex IVPB 05/09/22 23:59 PREOP GABE IV Miscellaneous Supplies 1 each 04/10/22 06:00 Iv Access IV 05/09/22 23:59 DIRECTED GABE Sodium Chloride 0 ml 04/10/22 06:00 Normal Saline Flush 10 Ml Syr IV 05/09/22 23:59 PRN PRN Sodium Chloride 0 ml 04/10/22 06:00 Normal Saline 10 Ml Vial IJ 05/09/22 23:59 DIRECTED PRN Sterile Water 0 ml 04/10/22 06:00 Water,Injection,Sterile 10 Ml Vial IJ 05/09/22 23:59 DIRECTED PRN PFSH Active Problems Active Problems: Problem Status Onset Code Acute medial meniscus tear of left knee S83.242A Internal derangement of left knee M23.92 MCL sprain of right knee S83.411A Complex tear of medial meniscus of right knee S83.231A Medical History Medical History HLD (hyperlipidemia) Surgical History Surgical History Hx of arthroscopy of right knee Tobacco Smoking/Tobacco Use Status: Current every day Tobacco Type: cigarettes Smoking cigarettes per day: 30 Alcohol Alcohol Intake: current Alcohol intake frequency: 3 or more drinks per day Alcohol type: beer Substance Use Substance use: Never Substance use type: does not use Vital Signs and Lab Results Vital Signs Most Recent Vital Signs in EMR: Temp Pulse Resp BP Pulse Ox 37.1 C 75 16 148/79 H 99 04/10/22 11:13 04/10/22 11:13 04/10/22 11:13 04/10/22 11:13 04/10/22 11:13 Lab Results Blood Type / Crossmatch: No Data to Display Complete Blood Count: No Data to Display Complete Metabolic Panel: No Data to Display Liver Function Panel: No Data to Display Coagulation Panel: No Data to Display Cardiac Panel: No Data to Display Arterial Blood Gas: No Data to Display Venous Blood Gas: No Data to Display Pancreas Panel: No Data to Display Thyroid Panel: No Data to Display Infectious Disease: Coronavirus (COVID-19)(PCR) Negative (Negative) 04/08/22 14:36 Coronavirus 2019 Source Nasal/Nares 04/08/22 14:36 Blood Cultures: No Data to Display Toxicology Panel: No Data to Display Anesthesia Assessment and Plan Anesthesia History Personal History: No History of General Anesthesia Family History: No Family History of Anesthesia Complications Exercise Tolerance Exercise Tolerance: Metabolic Equivalents>4 Pertinent Negatives Pertinent Negatives: No Symptoms of GERD, No Major Cardiovascular Symptoms or Complaints, No Major Pulmonary Symptoms or Complaints and No History of CVA/TIA Cardiac & Pulmonary Exam Cardiac Exam: Normal S1/S2 Heart Sounds Pulmonary Exam: Clear Bilateral Breath Sounds Implantable Cardiac Device Does patient have a Pacemaker or an ICD?: No Airway Exam Known Difficult Airway: No Mallampati Class: 2 Mouth Opening: Normal (> 3cm) Thyromental Distance: Greater than 3 cm Neck Range of Motion: Full ROM Neck Circumference: Normal Teeth Condition: Edentulous ASA Classification ASA Score: ASA 2 Emergency Case?: No NPO Status NPO Status: NPO Clears >2 hours, Solids >8 hours Anesthesia Plan Resuscitation Status: Full Code Anesthesia Technique: General Anesthesia Airway Planned: Endotracheal Tube Monitors Used: Standard Monitors Preoperative Comments:: 51 yo male for knee scope. Sig PMHx: smoker, daily EtOH, Previous Anes: failed LMA --> mac 3 grade 1. extubated deep on 200/ prop - still coughing and spasming with thick dhaliwal secretions in ett. required esmolol and labatelol for b/ps.
[2022-04-10] MEDS: Lactated Ringers 1,000 ML 80 ML IV (11:27)
[2022-04-10] MEDS: ceFAZolin 2 GM/50 ML BAG IVPB (12:46)
--- NOTE | 2022-04-10 13:03 | PDOC.DSDIS_ITS ---
Discharge Plan Disposition Patient Disposition: HOME Condition: Good Discharge Details Reason For Visit: Left knee arthroscopy Attending Provider: Francis Naqvi Primary Care Provider: Mikael Noel [place] Meds and New Rx's Prescriptions: New acetaminophen 500 mg tablet 1,000 mg PO TID Qty: 90 0RF ibuprofen 600 mg tablet 600 mg PO TID PRN (Reason: pain) Qty: 90 0RF hydrocodone-acetaminophen 5-325 mg tablet 1 tab PO Q6H PRN (Reason: pain) Qty: 6 0RF Continued simvastatin 40 MG tablet 40 mg PO DAILY Qty: 1 Discontinued ibuprofen 200 MG capsule 400 mg PO Q6H PRN Qty: 3 Rx Instructions: PT STATES HE IS TAKING 600MG TID.HE Discharge Instructions Stand Alone Forms: Driss Knee Arthroscopy Referrals: Francis Naqvi MD [ [facility] STAFF PHYSICIAN] - Equipment/Supplies: Partial Weight Bearing Crutches Activity:: Activity as Tolerated Remove Dressings/Wound Care:: 48 hours Shower/Bathe:: 48 hours Diet:: As Tolerated Discharge Orders Discharge Orders: Discharge Order (Routine); Ordered 04/10/22 Ordered By: Thad Calvert
[2022-04-10] MEDS: Bupivacaine 0.5% Pres-Free 30 ML VIAL (13:10)
[2022-04-10] MEDS: EPINEPHrine 30 MG/30 ML VIAL (13:16)
--- NOTE | 2022-04-10 15:52 | ROE_ITS ---
Date of service: 04/10/22 Time of Service: 14:00 Operative Note Operative Note DATE OF PROCEDURE: 04/10/22 PRE-OP DIAGNOSIS: Left Knee Medial Meniscus Tear POST-OP DIAGNOSIS: same PROCEDURE: Left Knee Arthroscopic Partial Medial Menisectomy SURGEON: Francis Naqvi Refer to Anesthesia Record ESTIMATED BLOOD LOSS: 0 PATHOLOGY: none sent COMPLICATIONS: None Patient was transported to: PACU Patient's condition: stable Indications: I have seen Farhad in clinic for symptoms of a meniscus tear. This was confirmed based on MRI and exam findings. Nonoperative measures were exhausted but disability and pain persisted. I discussed knee arthroscopy with meniscal intervention with the patient. I reviewed the risks of the procedure to include, but not limited to, bleeding, infection, pain, stiffness, damage to nerves or vessels, recurrence, blood clot. Despite these risks, the patient elected to proceed. Findings: A diagnostic arthroscopy was performed with the following findings: Suprapatellar Pouch: Moderate inflammation, no loose bodies Medial Compartment: Complex medial meniscal tear with displaced fragment, intact meniscal root, some areas of grade I chondromalacia, no loose bodies Notch: ACL and PCL were intact Lateral Compartment: No meniscal tear, intact meniscal root, no significant chondromalacia or signs of arthritis, no loose bodies Patellofemoral Compartment: No significant chondromalacia, no apparent patellar maltracking Procedure Description: Farhad was greeted in the preoperative holding area where the correct side was identified and marked. The consent was reviewed with the patient and signed. The history and physical was updated. All questions were answered. He was taken back to the operating room. The patient was placed into the supine position on the operating room table. All bony prominences were well padded. Prophylactic antibiotics in the form of cefazolin were administered. The left leg was then prepped with Chloraprep and draped in a standard fashion with stockinette and extremity drape. A timeout to confirm correct identity, side and site, procedure, allergies, anesthesia, and medical concerns was performed. The leg was placed into a pneumatic leg rees, [id number]. A standard lateral portal was made at the lateral border of the patella tendon in line with the inferior pole of the patella, soft spot. The skin and deep tissue was incised sharply and the blunt trochar was inserted atraumatically. A diagnostic arthroscopy was performed and the findings are listed above. The suprapatellar pouch had moderate inflammatory change. The patellofemoral articulation showed no articular damage as well as good tracking. The lateral gutter had no loose bodies and the medial gutter had no loose bodies but notable inflammation. The knee was brought into some valgus stress in extension to open the medial compartment. A medial portal was made, localized by a spinal needle. The portal was created with an #11 blade through skin and capsule under direct visualization avoiding any meniscal injury. A probe was then inserted into the medial compartment. The medial compartment was fully inspected. The chondral surface of the tibia showed no significant chondromalacia and the surface of the femur showed some grade I chondromalacia. The medial meniscus had a very apparent tear with a loose fragment tethered to the posterior meniscus adjacent to the root. After evaluation, the meniscus was debrided down to a stable base using a series of biters and arthroscopic michael. It was probed afterwards to confirm that the tear had been removed and the meniscus was stable. The tear was complex with a horizontal and radial component. There was some involvement of the meniscus adjacent to the posterior root but it did not destabilize the root. The tear was large all the way to the mid body of the medial meniscus. Visualization was challenging given the patient's extremely high blood pressure as well as technical issues with the pump. The notch was then inspected which showed an intact ACL and an intact PCL. The leg was then brought into a figure of 4 position. The lateral compartment was fully inspected with the arthroscope and a probe. The chondral surface of the lateral femur showed no significant chondromalacia. The chondral surface of the lateral tibia showed no significant chondromalacia. The lateral meniscus had no meniscal tear. The arthroscope was brought back into the suprapatellar pouch and the leg was in full extension. The knee was thoroughly irrigated with the arthroscopic fluid on high flow and pressure. Inflow was stopped and excess fluid was removed. Th e wounds were closed with 4-0 Nylon. They were dressed with Xeroform, 4x4 gauze, ABD pad, Kerlix and an DAYRON wrap. A cryo-cuff was applied. The patient tolerated the procedure well and was returned to the Same Day Surgery area in a stable condition suffering no known complication.
--- NOTE | 2022-04-10 16:01 | W.ANESPOSTOP ---
Postoperative Evaluation Date, Time and Location Date Performed: 04/10/22 Time Performed: : Patient Location: Day Surgery Unit Vital Signs Most Recent Imported Vital Signs: Most Recent Vital Signs Temp Pulse Resp BP Pulse Ox 36.2 C L 58 L 16 112/67 98 04/10/22 15:15 04/10/22 15:15 04/10/22 15:15 04/10/22 15:15 04/10/22 15:15 Pain Score Most Recent Pain Score: Most Recent Pain Score Pain Level 0 04/10/22 15:15 Assessment Mental Status: Awake (Alert & Oriented to Patient Baseline) Airway and Respiratory Function: Patent airway with normal (patient baseline) respiratory exam Cardiovascular Function: Hemodynamically Stable Hydration Status: Adequately Hydrated Nausea & Vomiting: No Nausea or Vomiting Pain: Pt. Denies Any Pain Peripheral Nerve Block: Patient did not receive a nerve block Teaching Patient Teaching: Other (Discussed airway reactivity and CV lability with the patient today, both recent anesthetics have been marked with significant oral secretions, laryngospasticity, and CV lability. I discussed that I will be adding this to the patients problem list and he denied any further questions. ) Postoperative Comments:: Asked if he should follow up with Dr. Noel about blood pressures and I said he could, however, I assumed these are due to surgical stress.
== END 2022-04-10 15:39 | disposition home or self-care (01) ==
PROVIDERS: PCP Family Medicine; Visit Provider Student in an Organized Health Care Education/Training Program
PROC: (CPT 29870; principal; 2022-04-10 13:15)
DX: S83.232A Complex tear of medial meniscus, current injury, left knee, initial encounter (principal); X58.XXXA Exposure to other specified factors, initial encounter; E78.5 Hyperlipidemia, unspecified
CPT/HCPCS: 29881; J0690; J1100; J2250; J2405; J2704; J3010; J3475

== ENCOUNTER 2023-03-18 12:34 | Outpatient (CLI) | payer MEDICAID, SELFPAY ==
[2023-03-18 12:51] LABS: Abs Immature Grans 0.02 10^3/uL (0.0-0.06); Absolute Basophil Count 0.03 10^3/uL (0.0-0.2); Absolute Eosinophil Count 0.05 10^3/uL (0.0-0.7); Absolute Monocyte Count 0.51 10^3/uL (0.1-0.8); Absolute Neutrophil Count 3.96 10^3/uL (1.2-6.7); Basophils % 0.5; Eosinophils % 0.9; HGB 15.1 g/dL (13.5-17.5); Immature Grans % 0.3; Lymphocytes % 22.1; MCH 31.3 pg (27.0-33.0); MCHC 34.3 % (32.0-36.0); MCV 91 fL (80-95); MPV 10.3 fL (8.0-11.0); Monocytes % 8.7; Neutrophils % 67.5; Platelet Count 194 10^3/uL (130-400); RBC 4.82 10^6/uL (4.36-5.78); RDW-SD 43.7 fL; WBC 5.87 10^3/uL (4.4-10.8)
[2023-03-18 13:01] LABS: Hemoglobin A1C 5.5 % (<5.7)
[2023-03-18 14:23] LABS: ALT 29 U/L (16-63); AST 26 U/L (15-37); Albumin 3.9 g/dL (3.4-5.0); Alkaline Phosphatase 92 U/L (46-116); Anion Gap 6.9 mmol/L (3-11); BUN 13 mg/dL (7-18); Bilirubin, Total 0.4 mg/dL (0.2-1.0); CO2 28.1 mmol/L (21.0-32.0); CREATININE 0.9 mg/dL (0.70-1.30); Calcium 9.2 mg/dL (8.5-10.1); Chloride 104 mmol/L (98-107); Estimated GFR 101.49 (mL/min/1.73m2); Glucose 118 mg/dL (74-106); Magnesium 2.4 mg/dL (1.8-2.4); Potassium 4.9 mmol/L (3.5-5.1); Sodium 139 mmol/L (136-145); TSH (W/Ref FT4) 1.21 uIU/mL (0.36-3.74); Total Protein 7.7 g/dL (6.4-8.2); Vitamin B12 319 pg/mL (193-986)
[2023-03-18 17:09] LABS: Folate 7.2 ng/mL (8.6-20.0)
[2023-03-23 09:12] LABS: Thiamine (Vitamin B1), WB 112 nmol/L (70-180)
== END 2023-03-18 12:35 | disposition home or self-care (01) ==
LOC: LBO 12:35
PROVIDERS: PCP Family Medicine; Visit Provider Nurse Practitioner Family
DX: R25.2 Cramp and spasm (principal); R20.2 Paresthesia of skin; R73.03 Prediabetes; F10.10 Alcohol abuse, uncomplicated
CPT/HCPCS: 36415; 80053; 82607; 82746; 83036; 83735; 84425; 84443; 85025

== ENCOUNTER → 2023-05-06 02:48 | Outpatient (CLI) | payer MEDICAID, SELFPAY ==
--- NOTE | 2023-05-06 07:30 | DI.CTLCSR_ITS ---
Exam(s) CT CHEST LUNG CANCER SCREEN EXAM: CT CHEST LUNG CANCER SCREEN CLINICAL HISTORY: ADULT PREVENTATIVE CARE, Z00.00; TOBACCO DEPENDENCY, F17.209 TECHNIQUE: Imaging Protocol: Axial computed tomography images with coronal and sagittal reformatted images were created and reviewed COMPARISON: CT CT CHEST LUNG CANCER SCREEN from 04/03/2022 FINDINGS: Tracheobronchial tree: Patent where visualized. Pulmonary parenchyma: No consolidation or dominant measurable mass. No architectural distortion. Lung Nodules: There is a stable subpleural nodule measuring 3 mm in the posterior aspect of the right lower lobe. No new or suspicious pulmonary nodules are seen. Mediastinum and Dai: No dominant adenopathy or fluid collection. The esophagus is unremarkable. Thyroid gland: Unremarkable. Lymph nodes: Unremarkable. Pleura: No effusion or pneumothorax. Heart: The heart is not dilated. Mild coronary artery calcification is present. No pericardial effus ion. Aorta: Thoracic aorta non-dilated.Mild atherosclerosis. Upper abdomen: Unremarkable. Soft Tissues: Unremarkable. Bones: Within normal limits for the patient's age. IMPRESSION: Stable 3 mm right lower lobe peripheral subpleural pulmonary nodule. Lung RADS Cat 2 - Benign Appearance / Behavior: Nodules with a very low likelihood of becoming a clin ically active cancer due to size or lack of growth Lung-RADS 1.0 CATEGORIES: Category 0 - Prior chest CT exam(s) being located for comparison. Category 1 - Annual screening in 12 months. No nodules or definitely benign nodules. Category 2 - Annual screening in 12 months. Benign appearance. Nodules with low likelihood of becomin g active cancer. Category 3 - 6-month follow-up. Probably benign. Short-term follow-up suggested. Nodules with low lik elihood of becoming active cancer. Category 4A - 3-month follow-up and CT/PET if >8 mm in size. Suspicious finding. Findings which requi re additional testing. Category 4B - Findings which require additional testing and tissue sampling. Suspicious finding. Category 4X - Category 3 or 4 nodules with additional features or imaging findings that increases the suspicion of malignancy. Modifier S- Potentially clinically significant finding. (Non lung cancer) RADIATION DOSE DELIVERED: 82.59mGy.cm Total DLP 82.59mGy.cmTotal DLP DATA REPOSITORY: All CT scans at this facility are submitted to the National Radiology Data Registry (NRDR) Dose Index Registry (DIR) with the [employer] ([employer]). RADIATION OPTIMIZATION: All CT scans at this facility use at least one of these dose optimization te chniques: automated exposure control; mA and/or kV adjustment per patient size (includes targeted exa ms where dose is matched to clinical indication); or iterative reconstruction.
== END ==
PROVIDERS: PCP Family Medicine; Visit Provider Family Medicine
DX: Z12.2 Encounter for screening for malignant neoplasm of respiratory organs (principal); F17.210 Nicotine dependence, cigarettes, uncomplicated; R91.1 Solitary pulmonary nodule
CPT/HCPCS: 71271

== ENCOUNTER 2023-10-01 06:14 | Day surgery (SDC) | payer MEDICAID, SELFPAY ==
[2023-10-01 06:15] VITALS: BP 146/73; PULSE 72; RESP 18; TEMP 36.7; O2SAT 96
--- NOTE | 2023-10-01 06:50 | W.ANESPRE ---
General Info Date of Service Date Performed: 10/01/23 Height: 5 ft 10 in Weight: 82 kg Body Mass Index (BMI): 25.9 Surgical Procedure: Operation Date: 10/01/23 07:40 Proposed Procedure Side Surgeon p Wrist ECTR Right Francis Naqvi MD Meds Allergies and Home Medications Allergies Allergy/AdvReac Type Severity Reaction Status Date / Time No Known Allergies Allergy Verified 09/30/23 10:47 Home Medication Medication Instructions Recorded acetaminophen 500 mg tablet 1,000 mg (2 x 500 mg) PO TID #90 04/10/22 tabs atorvastatin 40 mg tablet 40 mg PO DAILY 07/22/22 naltrexone 50 mg tablet 50 mg PO DAILY 07/22/22 tadalafil 20 mg tablet (Cialis) 20 mg PO DAILY PRN 07/22/22 folic acid 1 mg tablet 1 mg PO DAILY 04/21/23 Current Visit Medications: Current Medications Generic Name Dose Route Start Last Admin Trade Name Freq PRN Reason Stop Dose Admin Ringer's Solution 1,000 mls @ 80 mls/hr 10/01/23 06:00 IV 10/01/23 23:59 INFUSION GABE Cefazolin Sodium/Dextrose 2 gm in 50 mls @ 100 mls/hr 10/01/23 06:00 Ancef Duplex IVPB 10/01/23 23:59 PREOP GABE IV Miscellaneous Supplies 1 each 10/01/23 06:00 Iv Access IV 10/01/23 23:59 DIRECTED GABE Sodium Chloride 0 ml 10/01/23 06:00 Normal Saline Flush 10 Ml Syr IV 10/01/23 23:59 PRN PRN Sodium Chloride 0 ml 10/01/23 06:00 Normal Saline 10 Ml Vial IJ 10/01/23 23:59 DIRECTED PRN Sterile Water 0 ml 10/01/23 06:00 Water,Injection,Sterile 10 Ml Vial IJ 10/01/23 23:59 DIRECTED PRN PFSH Active Problems Active Problems: Problem Status Onset Code Osteoarthritis, knee M17.9 Paresthesia R20.2 Nocturnal muscle cramp R25.2 Carpal tunnel syndrome G56.00 Folic acid deficiency E53.8 Erectile dysfunction N52.9 Tobacco dependence F17.200 Prediabetes R73.03 Dyslipidemia E78.5 Metabolic syndrome E88.81 Alcohol abuse F10.10 Left knee pain M25.562 Screening for colon cancer Z12.11 Status post arthroscopy of left knee 04/10/22 Z98.890 Anesthesia complication T88.59XA MCL sprain of right knee S83.411A Complex tear of medial meniscus of right knee S83.231A Internal derangement of left knee M23.92 Medical History Medical History HLD (hyperlipidemia) Medical History Comments:: significant airways reactivity and significant CV lability last two anesthetic cases per DK note Surgical History Surgical History Hx of arthroscopy of right knee Tobacco Smoking/Tobacco Use Status: Current every day Tobacco Type: cigarettes Smoking cigarettes per day: 20 Years smoked: 45 Alcohol Alcohol Intake: current Alcohol intake frequency: 3 or more drinks per day Alcohol type: beer Substance Use Substance use: Never Substance use type: does not use Vital Signs and Lab Results Vital Signs Most Recent Vital Signs in EMR: Most Recent Vital Signs Temp Pulse Resp BP Pulse Ox 36.7 C 72 18 146/73 H 96 10/01/23 06:15 10/01/23 06:15 10/01/23 06:15 10/01/23 06:15 10/01/23 06:15 Lab Results Blood Type / Crossmatch: No Data to Display Complete Blood Count: No Data to Display Complete Metabolic Panel: No Data to Display Liver Function Panel: No Data to Display Coagulation Panel: No Data to Display Cardiac Panel: No Data to Display Arterial Blood Gas: No Data to Display Venous Blood Gas: No Data to Display Pancreas Panel: No Data to Display Thyroid Panel: No Data to Display Infectious Disease: No Data to Display Blood Cultures: No Data to Display Toxicology Panel: No Data to Display Anesthesia Assessment and Plan Anesthesia History Personal History: Other Family History: No Family History of Anesthesia Complications Exercise Tolerance Exercise Tolerance: Metabolic Equivalents>4 Pertinent Negatives Pertinent Negatives: No Symptoms of GERD Cardiac & Pulmonary Exam Cardiac Exam: Normal S1/S2 Heart Sounds Pulmonary Exam: Clear Bilateral Breath Sounds Implantable Cardiac Device Does patient have a Pacemaker or an ICD?: No Airway Exam Known Difficult Airway: No Mallampati Class: 2 Mouth Opening: Normal (> 3cm) Thyromental Distance: Greater than 3 cm Neck Range of Motion: Full ROM Neck Circumference: Normal Teeth Condition: Edentulous ASA Classification ASA Score: ASA 2 Emergency Case?: No NPO Status NPO Status: NPO Clears >2 hours, Solids >8 hours Anesthesia Plan Resuscitation Status: Full Code Anesthesia Technique: General Anesthesia Airway Planned: Natural Airway Monitors Used: Standard Monitors
[2023-10-01] MEDS: Lactated Ringers 1,000 ML 80 ML IV (06:51)
[2023-10-01 06:52] VITALS: BMI 25.9
--- NOTE | 2023-10-01 07:12 | PDOC.DSDIS_ITS ---
Date of service: 10/01/23 Time of Service: 07:12 Discharge Plan Disposition Patient Disposition: Home Condition: Good Discharge Details Reason For Visit: R ECTR Attending Provider: Francis Naqvi Primary Care Provider: Mikael Noel [place] Meds and New Rx's Prescriptions: New acetaminophen 500 mg tablet 1,000 mg PO TID Qty: 90 0RF hydrocodone-acetaminophen 5-325 mg tablet 1 tab PO Q6H PRN (Reason: pain) Qty: 3 0RF ibuprofen 600 mg tablet 600 mg PO TID PRN (Reason: pain) Qty: 90 0RF Continued tadalafil [Cialis] 20 mg tablet 20 mg PO DAILY PRN Rx Instructions: administer approximately 30min before sexual activity; do not use more than 1 dose per 24hrs naltrexone 50 mg tablet 50 mg PO DAILY atorvastatin 40 mg tablet 40 mg PO DAILY folic acid 1 mg tablet 1 mg PO DAILY Discontinued acetaminophen 500 mg tablet 1,000 mg PO TID Qty: 90 0RF Discharge Instructions Stand Alone Forms: Driss Mtz Tunnel Release Referrals: Francis Naqvi MD [ [facility] STAFF PHYSICIAN] - Activity:: Activity as Tolerated Remove Dressings/Wound Care:: 48 hours Shower/Bathe:: 48 hours Diet:: As Tolerated Discharge Orders Discharge Orders: Discharge Order (Routine); Ordered 10/01/23 Ordered By: Thad Calvert DS: Diagnosis Discharge Diagnosis (1) Right carpal tunnel syndrome: Status: Acute
[2023-10-01] MEDS: ceFAZolin 2 GM/50 ML BAG IVPB (07:27)
[2023-10-01 07:44] VITALS: BP 110/64; PULSE 65; RESP 16; TEMP 36.6; O2SAT 95
[2023-10-01] MEDS: Lidocaine 1% Multi-Dose W/EPI 1/100,000 50 ML VIAL (07:44)
--- NOTE | 2023-10-01 07:44 | W.PM.OP ---
Date of service: 10/01/23 Time of Service: 07:30 Operative Note Operative Note DATE OF PROCEDURE: 10/01/23 PRE-OP DIAGNOSIS: Right Carpal Tunnel Syndrome POST-OP DIAGNOSIS: same PROCEDURE: Right Endoscopic Carpal Tunnel Release SURGEON: Francis Naqvi ANESTHESIA TYPE: General:No Airway Refer to Anesthesia Record ESTIMATED BLOOD LOSS: 0 PATHOLOGY: none sent TOURNIQUET TIME: 3 COMPLICATIONS: None Patient was transported to: same day Patient's condition: stable Indications: I have seen Farhad in clinic for symptoms of carpal tunnel syndrome. The numbness, tingling, and pain limited function. Clinical exam findings confirmed the diagnosis of carpal tunnel syndrome. Nonoperative measures such as bracing, time, activity modifications had been tried but disability and pain persisted. I discussed carpal tunnel release with the patient. I reviewed the risks of the procedure to include, but not limited to, bleeding, infection, pain, stiffness, incomplete release, damage to nerves or vessels, persistent numbness, recurrence. Despite these risks, the patient elected to proceed. Findings: There was tightened carpal tunnel. This was dilated and released successfully with the endoscopic with increased space within the tunnel. The antebrachial fascia was released proximally freeing the median nerve at the wrist. Procedure Description: Farhad was greeted in the preoperative holding area where the correct side was identified and marked. The consent was reviewed with the patient and signed. The history and physical was updated. All questions were answered. Farhad was taken back to the operating room. The patient was placed into the supine position on the operating room table with the right arm on an arm board. A nonsterile tourniquet was placed high onto the arm. All bony prominences were well padded. Prophylactic antibiotics in the form of Cefazolin were administered. The right arm was then prepped with Chloraprep and draped in a standard fashion with stockinette and extremity drape. A timeout to confirm correct identity, side and site, procedure, allergies, anesthesia, and medical concerns was performed. The surgical site was marked in the volar wrist creases in line with the radial border of the fourth ray. This area was anesthetized with approximately 6cc of 1% Lidocaine. The limb was then exsanguinated with an Esmarch. The skin was incised with a 15 blade, approximately 1cm. The skin only was cut and the deeper tissue was dissected bluntly with a tenotomy scissor, avoiding passing nerve and venous structures. The fascia was penetrated and opened bluntly. A two-prong skin hook was placed under this proximal fascial edge. A series of hamate finders were used to identify and dilate the carpal tunnel. Synovial elevator was used to free synovial attachments to the underside of the transverse carpal ligament. My thumb was kept in the palm to amanda the distal extent of the carpal tunnel and correctly position the hand. The Microaire endoscope was inserted without difficulty and without resistance. Excellent visualization showed horizontally running fibers of the transverse carpal ligament (TCL). The distal extent of the TCL was visualized and the end of the scope palpated with the thumb. The blade was elevated and withdrawn from distal to proximal. The TCL was split into two flaps. The endoscope was reinserted to confirm complete release and any remnant ligament was incised. The scope was withdrawn and the proximal aspect of the carpal tunnel was grossly inspected and appeared release with the median nerve visible. The antebrachial fascia at the level of the wrist was then freed from the overlying skin and then the underlying median nerve with blunt dissection. This was transected longitudinally for about 3cm proximal to the wrist incision. The wound was then irrigated with easy flow of irrigant distally and proximally. The incision was closed with a single 4-0 Nylon suture. The wound was dressed with Xeroform, Gauze, Kerlix and Gus. The tourniquet was deflated with the initial dressing and held with some pressure. Blood flow returned easily to all digits with capillary refill less than 2 seconds. The patient tolerated the procedure well and was returned to the Same Day Surgery area in a stable condition suffering no known complication.
[2023-10-01 08:15] VITALS: BP 127/70; PULSE 63; RESP 16; TEMP 37; O2SAT 98
--- NOTE | 2023-10-01 08:54 | W.ANESPOSTOP ---
Postoperative Evaluation Date, Time and Location Date Performed: 10/01/23 Time Performed: 08:30 Patient Location: Day Surgery Unit Vital Signs Most Recent Imported Vital Signs: Most Recent Vital Signs Temp Pulse Resp BP Pulse Ox 37.0 C 63 16 127/70 98 10/01/23 08:15 10/01/23 08:15 10/01/23 08:15 10/01/23 08:15 10/01/23 08:15 Pain Score Most Recent Pain Score: Most Recent Pain Score Pain Level 0 10/01/23 08:15 Assessment Mental Status: Awake (Alert & Oriented to Patient Baseline) Airway and Respiratory Function: Patent airway with normal (patient baseline) respiratory exam Cardiovascular Function: Hemodynamically Stable Hydration Status: Adequately Hydrated Nausea & Vomiting: No Nausea or Vomiting Pain: Pt. Denies Any Pain Peripheral Nerve Block: Patient did not receive a nerve block
== END 2023-10-01 06:15 | disposition home or self-care (01) ==
PROVIDERS: PCP Family Medicine; Visit Provider Student in an Organized Health Care Education/Training Program
PROC: 01N54ZZ Release Median Nerve, Percutaneous Endoscopic Approach (ICD-10-PCS; CPT 29848; principal; 2023-10-01 07:30)
DX: G56.01 Carpal tunnel syndrome, right upper limb (principal); R73.03 Prediabetes; F17.200 Nicotine dependence, unspecified, uncomplicated; F10.10 Alcohol abuse, uncomplicated
CPT/HCPCS: 29848; J0690; J1100; J1885; J2001; J2004; J2704; J3010

== ENCOUNTER 2024-10-11 07:46 | Emergency (ER) | payer MEDICAID, SELFPAY ==
[2024-10-11 07:49] VITALS: BP 172/80; PULSE 68; RESP 16; TEMP 36.9; O2SAT 98
--- NOTE | 2024-10-11 08:13 | W.ED.GENAD ---
Discharge Plan Disposition Patient Disposition: Home Condition: Stable Discharge Details Clinical Impression: Sciatica Primary Care Provider: Mikael Noel ED Provider: Jose Manuel Villegas Home Meds and New Rx's Prescriptions: New methocarbamol 750 mg tablet 750 mg PO QID 7 Days Qty: 28 0RF Discharge Instructions Instructions: Methocarbamol, Sciatica ED Additional Instructions: You were seen in the emergency department for your sciatica affecting your right lower back and right leg. Please use therapeutic dosing of Tylenol (acetamenophen) & Advil (ibuprofen) in an alternating fashion as follows: Take 1000mg of Tylenol every 6 hours without missing doses- that is 4 times per day. Assisted in between the Tylenol dosings, take 400-600mg of Advil also on a 6 hour schedule, that is also 4 times per day. The daily maximum dosing of Tylenol is 4000mg, and the daily maximum dosing of Advil is 2400mg. This is safe to do for weeks. Please note that some common cold medications & prescription pain medications may contain acetamenophen and you need to read OTC drug labels and factor that in to maximum daily dosings. Purchase [id number] Voltaren gel applied to the area of pain in your lower back each day 3 times per day. Use the prescription methocarbamol for skeletal muscle relaxation, apply gentle heat to the area. Seek referral to physical therapy with the format provided for you to learn exercises that will help keep your back in correct alignment. Please return to the ER at once for any signs of spinal cord problems including bowel or urinary changes, numbness to the genitals, complete inability to use the right leg Stand Alone Forms: Physical Therapy Referral Referrals: Mikael Noel [Primary Care Provider] - [facility] General Date/Time Provider Initiated Documentation: 10/11/24 08:13. HPI Narrative: 54 year-old male presents to ED today by POV/ambulating with a chief complaint of lower back pain, radiating down the R leg to foot with onset 3 weeks ago while bending over to open a garage door that was locked. Quality described as shooting pain, tingling and cold sensation in R foot, focal to R SI joint, no radiation to fever, complete numbness, inability to move R leg, bowel/urinary changes, numbness to genitals. Severity is described as moderate. Palliating factors include elevating it, bengay cream, sleeping in recliner. Provoking factors include nothing specific. Patient not anticoagulated. Related Data Home Medications ?Medication ?Instructions ?Recorded ?Confirmed methocarbamol 750 mg tablet 750 mg PO QID 7 days #28 tabs 10/11/24 Previous Rx's ?Medication ?Instructions ?Recorded methocarbamol 750 mg tablet 750 mg PO QID 7 days #28 tabs 10/11/24 Allergies Allergy/AdvReac Type Severity Reaction Status Date / Time No Known Allergies Allergy Verified 10/11/24 07:58 General Stated Complaint: Orthopedic RANJIT: 4 Review of Systems All systems reviewed & are unremarkable except as noted in HPI and below Exam Narrative Exam Narrative: GENERAL APPEARANCE: Well-nourished, non-toxic, awake and alert, atraumatic, no acute distress. SKIN: Warm, pink, dry, intact, without rashes/lesions/ulcerations. HEAD: Normocephalic, atraumatic, normal hair distribution for gender/age. EYES: Normal conjunctiva, no exudates on lids/lashes. ENT: Nares patent, no circumoral cyanosis, no facial swelling NECK: Supple, trachea midline, painless cervical ROM. LUNGS/CHEST: Non-labored respirations, normal A/P diameter, symmetrical expansion, no chest wall deformity HEART (CV/PV): No peripheral edema, no JVD. ABDOMEN: Soft, non-distended, no guarding. MSK: Normal ROM, no swelling/deformity to bilateral UEs or LEs, moving all extremities without weakness, no cyanosis, spine midline without tenderness- mild R lumbar paraspinal tenderness at SI joint, no saddle anesthesia, normal curvature. NEURO: Mental Status AAOx4 - alert to person, place, time, events No facial droop, no forehead involvement. Motor: No focal weakness - strength 5/5 in bilateral UEs and LEs, proximal and distal, symmetric. Sensory: sensation intact to light touch globally. Gait normal: patient ambulated without ataxia into ED room. PSYCH: euthymic, cooperative, pleasant, appropriate speech Course Vital Signs Vital signs: Vital Signs Temperature 36.9 C 10/11/24 07:49 Pulse 68 10/11/24 07:49 Respiratory Rate 16 10/11/24 07:49 Blood Pressure 172/80 H 10/11/24 07:49 Pulse Oximetry 98 10/11/24 07:49 Temperature 36.9 C 10/11/24 07:49 Temperature Source Oral 10/11/24 07:49 Pulse 68 10/11/24 07:49 Respiratory Rate 16 10/11/24 07:49 Blood Pressure 172/80 H 10/11/24 07:49 Blood Pressure Position Sitting 10/11/24 07:49 Pulse Oximetry 98 10/11/24 07:49 Oxygen Delivery Method Room Air 10/11/24 07:49 Oxygen Flow Rate 0 10/11/24 07:49 Medical Decision Making This dictation utilizes [id number] dictation software and may contain unedited grammatical errors. 54 year-old male presents to ED today by POV/ambulating with a chief complaint of lower back pain, radiating down the R leg to foot with onset 3 weeks ago while bending over to open a garage door that was locked. Quality described as shooting pain, tingling and cold sensation in R foot, focal to R SI joint, no radiation to fever, complete numbness, inability to move R leg, bowel/urinary changes, numbness to genitals. Severity is described as moderate. Palliating factors include elevating it, bengay cream, sleeping in recliner. Provoking factors include nothing specific.. Patients' medical history: Hyperlipidemia, paresthesia, left knee pain. Family and social history: Noncontributory. Pertinent exam findings / vital signs include right lumbar paraspinal tenderness focal to the SI joint, no saddle anesthesia, strength 5/5 right lower extremity. Differential / pathologies of concern include sciatica, muscle spasm. Diagnostic studies of: -None. Interventions of: -Recommend OTCs, methocarbamol, PT referral. ED Course/Assessment/Plan: 54-year-old male presents with right lower lumbar tenderness, no signs of neurovascular compromise, recommend OTC analgesics, topical Voltaren, gentle heat, Rx for methocarbamol, PT referral. Strict return criteria for bowel or urinary changes, signs of neurovascular compromise to right lower. Findings not consistent with cauda equina, spinal epidural abscess, cord syndrome. Disposition of sciatica. Patient verbalized understanding of the plan and return to ED criteria and engaged in shared decision making. Medical Records Medical records reviewed: Yes I reviewed the patient's medical records. Quality:SDOH Health Related Social Needs: No Data to Display PFSH All Active Problems (Updated 10/11/24 @ 08:30 by JOHN Lawler) Sciatica (Acute) Right carpal tunnel syndrome (Acute) S/P ECTR: Osteoarthritis, knee (Acute) Paresthesia (Acute) Nocturnal muscle cramp (Acute) Folic acid deficiency (Acute) Erectile dysfunction (Acute) Tobacco dependence (Acute) Prediabetes (Acute) Dyslipidemia (Acute) Metabolic syndrome (Acute) Alcohol abuse (Chronic) Left knee pain (Acute) Screening for colon cancer (Acute) Status post arthroscopy of left knee (Acute 04/10/22) Anesthesia complication (Acute) Patient with significant airway reactivity and significant CV lability last two anesthetic cases. MCL sprain of right knee (Acute) Complex tear of medial meniscus of right knee (Acute) S/P arthroscopy with partial medial meniscectomy: 08/07/2021 Internal derangement of left knee (Acute) Medical History (Updated 10/11/24 @ 08:30 by JOHN Lawler) HLD (hyperlipidemia) Surgical History (Updated 10/01/23 @ 07:13 by JOHN Titus) Hx of arthroscopy of right knee Social History Smoking/Tobacco Use Status: Current every day Tobacco Type: cigarettes Years smoked: 45 Smoking risk assessment performed?: Yes Alcohol Intake: current Alcohol Intake frequency: 3 or more drinks per day Alcohol type: beer Drug use: Never Substance use type: does not use Housing: house Do you feel safe at home: Yes Do you feel safe in your relationship?: Yes
== END 2024-10-11 08:43 | disposition home or self-care (01) ==
LOC: ER 09:05
PROVIDERS: Emergency Provider Physician Assistant; PCP Family Medicine
DX: M54.31 Sciatica, right side (principal)
CPT/HCPCS: 99283